=== PATIENT | male | born 2000 | race Hispanic/Latino ===

== ENCOUNTER 2022-07-04 20:24 | Emergency (ER) | payer OTHER ==
[~2022-07-04] VITALS: Ht 165.1 cm; Wt 84.1 kg
[2022-07-05 01:43] VITALS: BP 130/78
[2022-07-05] MEDS ORDERED: NAPR-837 PO (02:37)
[2022-07-05] MEDS ORDERED: NAPROXEN 250 MG TAB PO ONE (02:40)
== END 2022-07-05 02:55 | disposition home or self-care (01) ==
LOC: M ED 20:24
DX: N50.811 Right testicular pain (principal)

== ENCOUNTER 2023-08-06 13:05 | Emergency (ER) | payer OTHER ==
[~2023-08-06] VITALS: Ht 165.1 cm; Wt 83.8 kg
[~2023-08-06 13:05] MED LIST: NAPR-837 PO
[2023-08-06 13:54] LABS: BASO % 0.5 % (0.0-1.0); EOS % 0.3 % (0.0-3.0); HEMATOCRIT 45.6 % (42.0-52.0); HEMOGLOBIN 16.1 g/dl (13.5-17.5); LYMPH # 1.1 10^3/uL (1.5-5.0); LYMPH % 14.8 % (24.0-44.0); MEAN CORPUSCULAR HEMOGLOBIN 31.3 pg (27.0-33.0); MEAN CORPUSCULAR HGB CONC 35.3 g/dl (32.0-36.5); MEAN CORPUSCULAR VOLUME 88.5 fl (80.0-96.0); MONO # 0.9 10^3/uL (0.0-0.8); MONO % 12.2 % (2.0-8.0); NEUTROPHILS # 5.5 10^3/uL (1.5-8.5); NEUTROPHILS % 71.9 % (36.0-66.0); PLATELET COUNT, AUTOMATED 234 10^3/uL (150-450); RED BLOOD COUNT 5.15 10^6/uL (4.30-6.10); WHITE BLOOD COUNT 7.7 10^3/uL (4.0-10.0)
[2023-08-06 14:14] LABS: BLOOD UREA NITROGEN 11 MG/DL (9-23); CALCIUM LEVEL 9.1 MG/DL (8.5-10.1); CARBON DIOXIDE LEVEL 30 MMOL/L (20-31); CHLORIDE LEVEL 98 MMOL/L (98-107); CREATININE FOR GFR 0.89 MG/DL (0.70-1.30); GLOMERULAR FILTRATION RATE > 60.0 (>60); GLUCOSE, FASTING 97 MG/DL (60-100); POTASSIUM SERUM 3.9 MMOL/L (3.5-5.1); SODIUM LEVEL 134 MMOL/L (136-145)
[2023-08-06 14:18] LABS: ERYTHROCYTE SEDIMENTATION RATE 25 mm/hr (0-15)
[2023-08-06 14:51] LABS: MONO SCRN NEGATIVE (NEGATIVE)
[2023-08-06] MEDS ORDERED: IBUPROFEN 600MG TAB PO ONE (16:50)
[2023-08-06 17:14] VITALS: BP 142/89; TEMP 99; O2SAT 96
== END 2023-08-06 17:53 | disposition home or self-care (01) ==
LOC: M ED 13:05
DX: U07.1 COVID-19 (principal); M79.10 Myalgia, unspecified site; Z79.1 Long term (current) use of non-steroidal anti-inflammatories (NSAID)

== ENCOUNTER → 2023-11-22 | Outpatient (REF) | payer OTHER ==
[2023-11-22 14:10] LABS: SEMEN APPEARANCE OPAQUE (OPAQUE); SEMEN VISCOSITY VISCOUS (LIQUID); SEMEN VOLUME 3.8 ml (2.0-5.0); SEMEN pH 8.5 (7.0-8.0)
[2023-11-22 14:11] LABS: SPERM CONCENTRATION 11.5 M/ml (>=15.0); WBC CONCENTRATION >1 M/ml (<=1 M/ml)
== END ==
LOC: M LAB REF 13:41
PROVIDERS: ATTEND Physician Assistant
DX: N46.9 Male infertility, unspecified (principal)